=== PATIENT | male | born 1975 | race Caucasian/White ===

== ENCOUNTER → 2016-08-25 | Outpatient (CLI) | payer BC ==
[~2016-08-25] MED LIST: CEPHALEXIN500 M1 PO; CLEOCIN HCL300 MG PO; NO HOME MEDICATIONS; NORCO 325 MG-51 TAB PO; PREDNISONE20 MG PO; ZYLOPRIM 100MG100 MG PO
== END ==
LOC: COL.RAD 08-18 08:30
DX: M24.131 Other articular cartilage disorders, right wrist (principal); M25.431 Effusion, right wrist
CPT/HCPCS: A9585; Q9967

== ENCOUNTER → 2016-09-01 | Outpatient (CLI) | payer BC | LOC: COL.RAD 08:45 | DX: S63.591A Other specified sprain of right wrist, initial encounter (principal) | CPT/HCPCS: J3301; Q9967 ==

== ENCOUNTER → 2018-05-14 | Outpatient (CLI) | payer BC | LOC: COL.RAD 07:57 | DX: M25.522 Pain in left elbow (principal); G89.29 Other chronic pain ==